=== PATIENT | male | born 1940 | race Caucasian/White ===

== ENCOUNTER 2020-08-02 11:09 | Emergency (ER) | payer MEDICARE ==
--- NOTE | 2020-08-02 11:23 | ERPHSYRPT ---
- History of Present Illness Time Seen by Provider: 08/02/20 11:18 Source: patient, family Exam Limitations: no limitations Physician History: pt fell, felling weak at home and called family who called EMS. He cannot bear weight due to right hip injured in fall. He feels that the fall may have been from being off his O2 - pulse ox in route 93 and improving with O2. no focal neuro findings , normal mental status, nontender chest, abd and full ROM other extremities; Occurred: just prior to arrival Reason for Fall: unknown, fell from standing pos Injuries/Pain Location: lower extremity Loss of Consciousness: unsure Quality: sharpness, throbbing Severity of Pain-Max: moderate Severity of Pain-Current: moderate Modifying Factors: Improves With: immobilization, movement Associated Symptoms (Fall): denies symptoms Allergies/Adverse Reactions: No Known Drug Allergies Allergy (Verified 08/02/20 11:20) Home Medications: ALPRAZolam [Alprazolam] 0.5 mg PO DAILY 08/02/20 [History] Albuterol Sulfate [Ventolin Hfa] 18 gm IH DAILY 08/02/20 [History] Amlodipine Besylate [Norvasc] 10 mg PO DAILY 08/02/20 [History] Furosemide 40 mg [Lasix 40 MG] 40 mg PO DAILY 08/02/20 [History] Potassium Chloride [K-Dur] 10 meq PO DAILY 08/02/20 [History] - Review of Systems Constitutional: No Fever, No Chills Eyes: No Symptoms Ears, Nose, & Throat: No Symptoms Respiratory: No Cough, No Dyspnea Cardiac: No Chest Pain, No Edema, No Syncope Abdominal/Gastrointestinal: No Abdominal Pain, No Nausea, No Vomiting, No Diarrhea Genitourinary Symptoms: No Dysuria Musculoskeletal: Fall, Joint Pain, No Back Pain, No Neck Pain Skin: No Symptoms, No Rash Neurological: No Dizziness, No Focal Weakness, No Sensory Changes Psychological: No Symptoms Endocrine: No Symptoms Hematologic/Lymphatic: No Symptoms Immunological/Allergic: No Symptoms All Other Systems: Reviewed and Negative - Past Medical History Pertinent Past Medical History: Yes - Nursing Vital Signs Nursing Vital Signs: Initial Vital Signs Temperature 98.1 F 08/02/20 11:10 Pulse Rate 106 H 08/02/20 11:10 Respiratory Rate 22 08/02/20 11:10 Blood Pressure 155/67 08/02/20 11:10 O2 Sat by Pulse Oximetry 98 08/02/20 11:10 Pain Scale Pain Intensity 4 - Nicole Coma Score Best Eye Response ([place]): (4) open spontaneously Best Verbal Response (Nicole): (5) oriented Best Motor Response ([place]): (6) obeys commands Nicole Total: 15 - Physical Exam General Appearance: no apparent distress, alert Head Injury: no evidence of injury Eye Exam: PERRL/EOMI ENT Exam: airway nml Neck Exam: normal inspection, No tenderness Respiratory/Chest Exam: normal breath sounds, No chest tenderness, No respiratory distress Cardiovascular Exam: normal heart sounds, regular rate/rhythm Gastrointestinal Exam: soft, No tenderness, No distention, No guarding, No ecchymosis Rectal Exam: deferred Back Exam: normal inspection, No vertebral tenderness Extremity Exam: normal inspection, normal range of motion, pelvis stable, No deformities Peripheral Pulses: carotid (R): 2+, carotid (L): 2+, femoral (R): 2+, femoral (L): 2+, dorsalis-pedis (R): 2+, dorsalis-pedis (L): 2+ Neurologic Exam: alert, oriented x 3, cooperative, sensation nml, No motor deficits Skin Exam: normal color, warm, dry SpO2 Interpretation: borderline oxygenation O2 Delivery: Nasal Cannula - Course Nursing assessment & vital signs reviewed: Yes EKG Interpreted by Me: Sinus Rhythm, NORMAL AXIS, Right Bundle Branch Block, Non-specific ST Changes - Radiology Exams Right Hip X-ray Interpretation: Reviewed by me, Teleradiologist Report, Displaced Fracture Ordered Tests: Active Orders 24 hr Category Date Time Status EKG-ER Only STAT Care 08/02/20 11:25 Active Lee [Catheter-Clinton Lee] STAT Care 08/02/20 11:46 Active IV Insertion STAT Care 08/02/20 11:25 Active Oxygen-ED Only Nasal Cannula 3 lpm Care 08/02/20 12:00 Active CHEST 1 VIEW (PORTABLE) Stat Exams 08/02/20 11:25 Taken HIP UNI (2V) INCL PEL IF DONE Stat Exams 08/02/20 11:26 Taken CBC W DIFF Stat Lab 08/02/20 11:40 Completed CMP Stat Lab 08/02/20 11:40 Completed Lactic Acid Stat Lab 08/02/20 11:25 Completed TROPONIN Q3H Lab 12/26/20 11:40 Completed TROPONIN Q3H Lab 08/02/20 14:30 Ordered TROPONIN Q3H Lab 08/02/20 17:30 Ordered TROPONIN Q3H Lab 08/02/20 20:30 Ordered TROPONIN Q3H Lab 08/02/20 23:30 Ordered UA W/RFX UR CULTURE Stat Lab 08/02/20 11:46 Completed Medication Summary Generic Name Dose Route Start Last Admin Trade Name Freq PRN Reason Stop Dose Admin Sodium Chloride 1,000 mls @ 100 mls/hr 08/02/20 11:30 08/02/20 11:32 Sodium Chloride 0.9% 1000 Ml IV 09/01/20 11:29 100 mls/hr .Q10H ABBY Administration Discontinued Medications Generic Name Dose Route Start Last Admin Trade Name Freq PRN Reason Stop Dose Admin Morphine Sulfate 4 mg 08/02/20 11:25 08/02/20 11:48 Morphine Sulfate 4 Mg Inj IV 08/02/20 11:26 4 mg STAT ONE Administration Morphine Sulfate Confirm 08/02/20 11:31 Morphine Sulfate 4 Mg Inj Administered 08/02/20 11:32 Dose 4 mg .ROUTE .STK-MED ONE Ondansetron HCl 4 mg 08/02/20 11:25 08/02/20 11:48 Zofran 4 Mg/2 Ml Vial IV 08/02/20 11:26 4 mg STAT ONE Administration Ondansetron HCl Confirm 08/02/20 11:30 Zofran 4 Mg/2 Ml Vial Administered 08/02/20 11:31 Dose 4 mg .ROUTE .STK-MED ONE Ondansetron HCl Confirm 08/02/20 11:46 Zofran 4 Mg/2 Ml Vial Administered 08/02/20 11:47 Dose 4 mg .ROUTE .STK-MED ONE Lab/Rad Data: Laboratory Result Diagrams 08/02/20 11:40 08/02/20 11:40 Laboratory Results 08/02/20 08/02/20 08/02/20 Range/Units 11:46 11:40 11:40 WBC (4.0-10.5) K/mm3 RBC (4.1-5.6) M/mm3 Hgb (12.5-18.0) gm/dl Hct (42-50) % MCV (78-100) fl MCH (26-32) pg MCHC (32-36) g/dl RDW (11.5-14.0) % Plt Count (150-450) K/mm3 MPV (7.5-11.0) fl Gran % (36.0-66.0) % Eos # (Auto) (0-0.5) Absolute Lymphs (auto) (1.0-4.6) Absolute Monos (auto) (0.0-1.3) Lymphocytes % (24.0-44.0) % Monocytes % (0.0-12.0) % Eosinophils % (0.00-5.0) % Basophils % (0.0-0.4) % Absolute Granulocytes (1.4-6.9) Basophils # (0-0.4) Sodium 138 (137-145) mmol/L Potassium 4.3 (3.5-5.1) mmol/L Chloride 102 (98-107) mmol/L Carbon Dioxide 30 (22-30) mmol/L Anion Gap 9.4 (5-15) MEQ/L BUN 17 (9-20) mg/dL Creatinine 0.73 (0.66-1.25) mg/dL Estimated GFR > 60.0 ML/MIN Glucose 126 H (74-106) mg/dL Lactic Acid (0.4-2.0) Calcium 9.0 (8.4-10.2) mg/dL Total Bilirubin 0.60 (0.2-1.3) mg/dL AST 29 (17-59) U/L ALT 16 (0-50) U/L Alkaline Phosphatase 71 (38-126) U/L Troponin I < 0.012 (0.000-0.034) ng/mL Serum Total Protein 7.4 (6.3-8.2) g/dL Albumin 4.2 (3.5-5.0) g/dL Urine Color STRAW (YELLOW) Urine Appearance CLEAR (CLEAR) Urine pH 7.0 (5-6) Ur Specific [place] 1.008 (1.005-1.025) Urine Protein NEGATIVE (Negative) Urine Ketones NEGATIVE (NEGATIVE) Urine Blood NEGATIVE (0-5) Bud/ul Urine Nitrite NEGATIVE (NEGATIVE) Urine Bilirubin NEGATIVE (NEGATIVE) Urine Urobilinogen NEGATIVE (0-1) mg/dL Ur Leukocyte Esterase NEGATIVE (NEGATIVE) Urine WBC (Auto) NONE (0-5) /HPF Urine RBC (Auto) NONE (0-2) /HPF U Hyaline Cast (Auto) 3-5 (0-2) /LPF U Epithel Cells (Auto) NONE (FEW) /HPF Urine Bacteria (Auto) NONE (NEGATIVE) /HPF Urine Mucus (Auto) SLIGHT (NEGATIVE) /HPF Urine Culture Reflexed NO (NO) Urine Glucose NEGATIVE (NEGATIVE) mg/dL 08/02/20 08/02/20 Range/Units 11:40 11:25 WBC 19.4 H (4.0-10.5) K/mm3 RBC 4.53 (4.1-5.6) M/mm3 Hgb 13.1 (12.5-18.0) gm/dl Hct 41.1 L (42-50) % MCV 90.7 (78-100) fl MCH 28.9 (26-32) pg MCHC 31.9 L (32-36) g/dl RDW 13.5 (11.5-14.0) % Plt Count 296 (150-450) K/mm3 MPV 10.7 (7.5-11.0) fl Gran % 87.3 H (36.0-66.0) % Eos # (Auto) 0.02 (0-0.5) Absolute Lymphs (auto) 1.05 (1.0-4.6) Absolute Monos (auto) 1.38 H (0.0-1.3) Lymphocytes % 5.4 L (24.0-44.0) % Monocytes % 7.1 (0.0-12.0) % Eosinophils % 0.1 (0.00-5.0) % Basophils % 0.1 (0.0-0.4) % Absolute Granulocytes 16.95 H (1.4-6.9) Basophils # 0.02 (0-0.4) Sodium (137-145) mmol/L Potassium (3.5-5.1) mmol/L Chloride (98-107) mmol/L Carbon Dioxide (22-30) mmol/L Anion Gap (5-15) MEQ/L BUN (9-20) mg/dL Creatinine (0.66-1.25) mg/dL Estimated GFR ML/MIN Glucose (74-106) mg/dL Lactic Acid 1.3 (0.4-2.0) Calcium (8.4-10.2) mg/dL Total Bilirubin (0.2-1.3) mg/dL AST (17-59) U/L ALT (0-50) U/L Alkaline Phosphatase (38-126) U/L Troponin I (0.000-0.034) ng/mL Serum Total Protein (6.3-8.2) g/dL Albumin (3.5-5.0) g/dL Urine Color (YELLOW) Urine Appearance (CLEAR) Urine pH (5-6) Ur Specific [place] (1.005-1.025) Urine Protein (Negative) Urine Ketones (NEGATIVE) Urine Blood (0-5) Bud/ul Urine Nitrite (NEGATIVE) Urine Bilirubin (NEGATIVE) Urine Urobilinogen (0-1) mg/dL Ur Leukocyte Esterase (NEGATIVE) Urine WBC (Auto) (0-5) /HPF Urine RBC (Auto) (0-2) /HPF U Hyaline Cast (Auto) (0-2) /LPF U Epithel Cells (Auto) (FEW) /HPF Urine Bacteria (Auto) (NEGATIVE) /HPF Urine Mucus (Auto) (NEGATIVE) /HPF Urine Culture Reflexed (NO) Urine Glucose (NEGATIVE) mg/dL - Progress Progress: improved, re-examined Progress Note: 08/02/20 14:[address] Diaz at [facility] and she accepted in Transfer for Hip Fx Tx and further w/u; Discussed with : Other (Dr. Diaz) Counseled pt/family regarding: lab results, diagnosis, need for follow-up, rad results - Departure Departure Disposition: Transfer Clinical Impression: Intertrochanteric fracture of right femur Condition: Good Critical Care Time: No Referrals: UMANG REESE MD [Primary Care Provider] -
[2020-08-02] MEDS ORDERED: Sodium Chloride 0.9% 1000 ML 1,000 ML IV SCH (11:30)
[2020-08-02] MEDS ORDERED: Zofran 4 MG/2 ML VIAL ONE ×2 (11:30→11:46)
[2020-08-02] MEDS ORDERED: MORPHINE SULFATE 4 MG INJ ONE ×2 (11:31→14:27)
[2020-08-02] MEDS ORDERED: Sodium Chloride 0.9% 1000 ML 0 ML ONE (11:31)
[2020-08-02] MEDS: Zofran 4 MG/2 ML VIAL IV ONE ×2 (11:32→11:48)
[2020-08-02] MEDS: MORPHINE SULFATE 4 MG INJ IV ONE ×2 (11:32→11:48)
[2020-08-02] MEDS ORDERED: Sodium Chloride 0.9% 1000 ML 1,000 ML ONE (11:46)
[2020-08-02 11:49] LABS: Absolute Neutrophil Ct (ANC) 16.95 (1.4-6.9); BASOPHIL % 0.1 % (0.0-0.4); Basophil (Absolute #) 0.02 (0-0.4); Eosinophil % 0.1 % (0.00-5.0); Eosinophil (Absolute #) 0.02 (0-0.5); Hematocrit 41.1 % (42-50); Hemoglobin 13.1 gm/dl (12.5-18.0); Lymphocyte (Absolute #) 1.05 (1.0-4.6); Lymphocytes % 5.4 % (24.0-44.0); Mean Cell Volume 90.7 fl (78-100); Mean Corpuscular Hemoglobin 28.9 pg (26-32); Mean Corpuscular Hgb Concent. 31.9 g/dl (32-36); Mean Platelet Volume 10.7 fl (7.5-11.0); Monocyte (Absolute #) 1.38 (0.0-1.3); Monocytes % 7.1 % (0.0-12.0); Neutrophil % 87.3 % (36.0-66.0); Platelet Count 296 K/mm3 (150-450); Red Blood Count 4.53 M/mm3 (4.1-5.6); Red Cell Distribution Width 13.5 % (11.5-14.0); White Blood Count 19.4 K/mm3 (4.0-10.5)
[2020-08-02 11:57] LABS: Appearance CLEAR (CLEAR); Bilirubin NEGATIVE (NEGATIVE); Blood NEGATIVE Ery/ul (0-5); Glucose NEGATIVE (NEGATIVE); Ketones NEGATIVE (NEGATIVE); Leukocyte Esterase NEGATIVE (NEGATIVE); Mucus SLIGHT /HPF (NEGATIVE); Nitrite NEGATIVE (NEGATIVE); Protein,Urine Dip NEGATIVE (Negative); Specific Gravity 1.008 (1.005-1.025); Urobilinogen NEGATIVE mg/dL (0-1)
[2020-08-02 12:02] LABS: ALBUMIN 4.2 g/dL (3.5-5.0); ALKALINE PHOSPHATASE 71 U/L (38-126); ANION GAP 9.4 MEQ/L (5-15); BLOOD UREA NITROGEN 17 mg/dL (9-20); CHLORIDE 102 mmol/L (98-107); Carbon Dioxide 30 mmol/L (22-30); Creatinine 1 0.73 mg/dL (0.66-1.25); EST GLOMERULAR FILTRATION RATE > 60.0 ML/MIN; Glucose 126 mg/dL (74-106); Potassium 4.3 mmol/L (3.5-5.1); SGOT/AST 29 U/L (17-59); SGPT/ALT 16 U/L (0-50); SODIUM 138 mmol/L (137-145); Total Protein 7.4 g/dL (6.3-8.2)
[2020-08-02 13:05] VITALS: O2SAT 100
[2020-08-02 14:04] VITALS: BP 107/51; PULSE 102
[2020-08-02] MEDS ORDERED: MORPHINE SULFATE 4 MG INJ IV ONE (14:30)
--- NOTE | 2020-08-02 19:05 | XRAY ---
Indication: Pain following fall. Comparison: August 04, 2007. Portable chest demonstrates COPD, CIPD, left costophrenic angle blunting, and left base fibrosis/scarring. Heart is not enlarged. Bony thorax intact with mild osteopenia and degenerative changes. Impression: Nonacute chest with chronic features. Comment: Preliminary interpretation was made by [facility]. No critical discrepancy.
--- NOTE | 2020-08-02 19:07 | XRAY ---
Indication: Pain following fall. Comparison: None 2 view right hip demonstrates intertrochanteric fracture with displaced lesser trochanter fracture fragment. Elsewhere osteopenia and Lee catheter in situ. Comment: Preliminary interpretation was made by [facility]. No critical discrepancy.
== END 2020-08-02 14:41 | disposition short-term general hospital (02) ==
LOC: ED 11:09
DX: S72.101A Unspecified trochanteric fracture of right femur, initial encounter for closed fracture (principal)
CPT/HCPCS: 36415; 51702; 71045; 73502; 80053; 81001; 83605; 84484; 85025; 93005; 96374; 96375; 96376; 99285; J2270; J2405